=== PATIENT | female | born 1955 | race African-American/Black ===

== ENCOUNTER 2022-02-14 17:02 | Emergency (ER) | payer MEDICARE, OTHER ==
[~2022-02-14] VITALS: Ht 167.6 cm; Wt 61.8 kg
[~2022-02-14 17:02] MED LIST: IBUP-1689 PO
[2022-02-14] MEDS ORDERED: LISI-658 PO (17:06)
[2022-02-14] MEDS ORDERED: CYCLOBENZAPRINE HCL 10 MG TABLET PO ONE (18:30)
[2022-02-14] MEDS ORDERED: LIDOCAINE 5% TRANSDERMAL PATCH TD ONE (18:30)
[2022-02-14] MEDS ORDERED: KETOROLAC TROMETHAMINE 30 MG/ML VIAL IM ONE (18:30)
[2022-02-14 18:44] LABS: BASOPHILS % (AUTO) 0.5 % (0.0-2.0); EOSINOPHILS % (AUTO) 2.8 % (1.0-6.0); HEMATOCRIT 36.2 % (36-46); LYMPHOCYTES % (AUTO) 43.5 % (22.0-44.0); MEAN CORPUSCULAR HEMOGLOBIN 28.9 pg (26.0-34.0); MEAN CORPUSCULAR VOLUME 88 fL (80-100); MONOCYTES # (AUTO) 0.5 K/uL (0.1-1.0); NEUTROPHILS # (AUTO) 3.1 K/uL (1.8-7.7); NEUTROPHILS % (AUTO) 45.2 % (40.0-70.0); PLATELET COUNT (AUTO) 326 K/uL (150-450); RED BLOOD CELL COUNT(AUTO) 4.14 MIL/uL (4.00-5.20); RED CELL DISTRIBUTION WIDTH 13.7 % (11.5-14.5)
[2022-02-14 18:53] LABS: ANION GAP 9 mmol/L (8-16); CALCIUM, TOTAL 9.6 mg/dL (8.8-10.5); CARBON DIOXIDE 29 mmol/L (22-29); CHLORIDE 103 mmol/L (98-107); CREATININE 1.01 mg/dL (0.60-1.30); GLOMERULAR FILTR. RATE CALC > 60 mL/min (>60); GLUCOSE,RANDOM 91 mg/dL (70-110); POTASSIUM 3.9 mmol/L (3.5-5.1); SODIUM SERUM 141 mmol/L (136-145); UREA NITROGEN, BLOOD 27 mg/dL (7-18)
[2022-02-14] MEDS ORDERED: CYCL-448 PO (20:05)
[2022-02-14] MEDS ORDERED: IBUP-2070 PO (20:05)
[2022-02-14 20:27] VITALS: BP 155/89
== END 2022-02-14 20:29 | disposition home or self-care (01) ==
LOC: EMS 17:04
DX: M54.6 Pain in thoracic spine (principal); M25.511 Pain in right shoulder; I10 Essential (primary) hypertension; Z79.899 Other long term (current) drug therapy
CPT/HCPCS: 36415; 71045; 80048; 84484; 85025; 93005; 96372; 99285; J1885

== ENCOUNTER 2022-02-27 16:33 | Emergency (ER) | payer MEDICARE, OTHER ==
[~2022-02-27] VITALS: Ht 167.6 cm; Wt 63.6 kg
[~2022-02-27 16:33] MED LIST changes: +CYCL-448 PO; +IBUP-2070 PO; +LISI-658 PO
[2022-02-27] MEDS ORDERED: BACL10TA PO (18:17)
[2022-02-27] MEDS ORDERED: KETOROLAC TROMETHAMINE 30 MG/ML VIAL IM ONE (18:30)
[2022-02-27] MEDS ORDERED: LIDOCAINE 5% TRANSDERMAL PATCH TD ONE (18:30)
[2022-02-27 18:47] VITALS: BP 132/78
== END 2022-02-27 19:04 | disposition home or self-care (01) ==
LOC: EMS 16:33
DX: M54.6 Pain in thoracic spine (principal); I10 Essential (primary) hypertension; Z79.899 Other long term (current) drug therapy
CPT/HCPCS: 96372; 99283; J1885

== ENCOUNTER 2024-11-05 13:35 | Inpatient (IN) | payer MEDICARE, MEDICAID ==
[~2024-11-05] VITALS: Ht 170.2 cm; Wt 72.7 kg
[~2024-11-05 13:35] MED LIST changes: +BACL10TA PO; -IBUP-1689 PO; -IBUP-2070 PO; -LISI-658 PO
[2024-11-05] MEDS ORDERED: LISI1TAB53 PO (13:44)
[2024-11-05] MEDS ORDERED: CITA10TA99 PO (13:44)
[2024-11-05] MEDS: MethylPREDNISolone SOD SUCC 125 MG/2 ML VIAL IVP ONE ×2 (13:57→13:59)
[2024-11-05] MEDS: DiphenhydrAMINE HCL 50 MG/ML VIAL IVP ONE (13:59)
[2024-11-05 14:13] LABS: BASOPHILS % (AUTO) 0.3 % (0.0-2.0); EOSINOPHILS % (AUTO) 0.2 % (1.0-6.0); HEMATOCRIT 40.5 % (36-46); LYMPHOCYTES # (AUTO) 1.5 K/uL (1.0-4.8); LYMPHOCYTES % (AUTO) 21.4 % (22.0-44.0); MEAN CORPUSCULAR HEMOGLOBIN 30.3 pg (26.0-34.0); MEAN CORPUSCULAR VOLUME 95 fL (80-100); MONOCYTES # (AUTO) 0.2 K/uL (0.1-1.0); MONOCYTES % (AUTO) 2.7 % (2.0-9.0); NEUTROPHILS # (AUTO) 5.5 K/uL (1.8-7.7); NEUTROPHILS % (AUTO) 75.4 % (40.0-70.0); PLATELET COUNT (AUTO) 365 K/uL (150-450); RED BLOOD CELL COUNT(AUTO) 4.28 MIL/uL (4.00-5.20); RED CELL DISTRIBUTION WIDTH 14.6 % (11.5-14.5); WHITE BLOOD COUNT (AUTO) 7.2 K/uL (4.5-11.0)
[2024-11-05] MEDS: EPINEPHrine 1:1,000 [1 MG/ML] VIAL IM ONE (14:22)
[2024-11-05 14:24] LABS: ANION GAP 21 mmol/L (8-16); CALCIUM, TOTAL 9.6 mg/dL (8.8-10.5); CARBON DIOXIDE 20 mmol/L (22-29); CHLORIDE 99 mmol/L (98-107); CREATININE 1.14 mg/dL (0.60-1.30); GLOMERULAR FILTR. RATE CALC 58 mL/min (>60); GLUCOSE,RANDOM 60 mg/dL (70-110); POTASSIUM 4.1 mmol/L (3.5-5.1); SODIUM SERUM 140 mmol/L (136-145); UREA NITROGEN, BLOOD 28 mg/dL (7-18)
[2024-11-05 14:41] LABS: PROTHROMBIN TIME 9.5 SEC (9.4-11.6)
[2024-11-05 14:45] LABS: ALANINE AMINOTRANSFERASE 31 U/L (12-78); ALBUMIN 3.9 g/dL (3.4-5.0); ALKALINE PHOSPHATASE 85 U/L (46-116); ASPARTATE AMINOTRANSFERASE 48 U/L (15-37); BILIRUBIN,TOTAL 0.4 mg/dL (0.1-1.0); TOTAL PROTEIN, SERUM 8.3 g/dL (6.4-8.2); TROPONIN I-HIGH SENSITIVITY 16 ng/L (<51)
[2024-11-05] MEDS: FAMOTIDINE 20 MG/2 ML VIAL IVP ONE (14:45)
[2024-11-05] MEDS: DEXTROSE 50%-WATER 25 GM/50 ML SYRINGE IVP ONE (15:06)
[2024-11-05] MEDS ORDERED: ONDANSETRON HCL 4 MG/2 ML VIAL IVP PRN (15:15)
[2024-11-05] MEDS ORDERED: CloNIDine HCL 0.1 MG TABLET PO PRN (15:15)
[2024-11-05] MEDS: AmLODIPine BESYLATE 10 MG TABLET PO SCH (15:21)
[2024-11-05] MEDS: HEPARIN SODIUM,PORCINE 5,000 UNITS/ML VIAL SQ SCH (15:23)
[2024-11-05 16:30] VITALS: BP 147/100; PULSE 84; RESP 16; TEMP 98.1
[2024-11-05 16:45] VITALS: BP 131/81; PULSE 90; RESP 18; TEMP 98.1
[2024-11-05 17:00] VITALS: BP 127/83; PULSE 102; RESP 18; TEMP 98.2
[2024-11-05 17:15] VITALS: BP 162/89; PULSE 92; RESP 15; TEMP 98.2
[2024-11-05 17:30] VITALS: BP 139/74; PULSE 96; RESP 16; TEMP 98.2
[2024-11-05] MEDS: FAMOTIDINE 20 MG TABLET PO SCH (20:21)
[2024-11-05] MEDS: DOCUSATE SODIUM 100 MG CAPSULE PO SCH (20:21)
[2024-11-05 20:47] LABS: APPEARANCE,URINE CLEAR (CLEAR); BILIRUBIN,URINE NEGATIVE (NEGATIVE); COLOR,URINE COLORLESS (YELLOW); GLUCOSE, URINE (UA) NEGATIVE (NEGATIVE); LEUKOCYTE ESTERASE ,URINE NEGATIVE (NEGATIVE); NITRATE,URINE NEGATIVE (NEGATIVE); OCCULT BLOOD,URINE NEGATIVE (NEGATIVE); PH,URINE 5.5 (5.0-8.0); PROTEIN,URINE NEGATIVE (NEGATIVE); SPECIFIC GRAVITIY, URINE 1.009 (1.003-1.030); UROBILINOGEN,URINE <=1.0 mg/dL (<=1.0)
[2024-11-05] MEDS ORDERED: DiphenhydrAMINE HCL 50 MG/ML VIAL IVP PRN (21:45)
[2024-11-05] MEDS: ACETAMINOPHEN 325 MG TABLET PO PRN (21:58)
[2024-11-05] MEDS: CHLORHEXIDINE GLUCONATE 2% TOWELETTE [2'S/6'S] TP SCH (22:00)
[2024-11-05] MEDS ORDERED: CHLORHEXIDINE GLUCONATE 2% TOWELETTE [2'S/6'S] TP SCH (22:00)
[2024-11-06 04:21] VITALS: BP 122/78; PULSE 63; RESP 18; O2SAT 100
[2024-11-06] MEDS ORDERED: AMLO-257 PO (08:31)
== END 2024-11-06 08:45 | disposition home or self-care (01) | DRG 916 ==
LOC: EMS 13:35 → EDH 15:09
PROVIDERS: ADMIT Internal Medicine; ATTEND Internal Medicine
PROC: 30233K1 Transfusion of Nonautologous Frozen Plasma into Peripheral Vein, Percutaneous Approach (ICD-10-PCS; principal; 2024-11-05)
DX: T78.3XXA Angioneurotic edema, initial encounter (principal); I10 Essential (primary) hypertension; T46.4X5A Adverse effect of angiotensin-converting-enzyme inhibitors, initial encounter; Y92.89 Other specified places as the place of occurrence of the external cause
CPT/HCPCS: 71045; 80048; 80076; 81003; 83880; 84484; 85025; 85610; 85730; 86850; 86900; 86901; 86927; 93005; 93041; 99291; G0378; J0171; J1200; J1644; J2919; P9017; 36415-L1; 36415-TC